=== PATIENT | female | born 1995 | race Caucasian/White ===

== ENCOUNTER 2020-08-02 16:18 | Emergency (ER) | payer BC ==
[2020-08-02 16:23] VITALS: BP 124/87; PULSE 86; RESP 20; TEMP 97.2
--- NOTE | 2020-08-02 16:38 | XR ---
EXAMINATION TYPE: XR hand complete LT DATE OF EXAM: 08/02/2020 COMPARISON: NONE HISTORY: Laceration. Pain. TECHNIQUE: 3 views FINDINGS: I see no fracture nor dislocation. Joint spaces appear normal. There is no sign of a foreig n body. IMPRESSION: Negative left hand exam. No foreign body seen. No fracture.
--- NOTE | 2020-08-02 17:03 | ED ---
Wound/Laceration HPI - General Chief Complaint: Wound/Laceration Stated Complaint: fall/hand injury Time Seen by Provider: 08/02/20 16:39 Source: patient Mode of arrival: ambulatory Limitations: no limitations - History of Present Illness Initial Comments: 25-year-old female presents to the emergency department with a chief complaint of a laceration. Patient reports this occurred about one hour prior to arrival. Patient reports she had a triple fall while she was carrying a bottle of champagne which broke and lacerated the palmar aspect of her left hand and her right hip. States her tetanus is not up-to-date. He states she has full range of motion in her hands and fingers. Denies any paresthesias. Denies taking medication to alleviate the symptoms. Denies any alleviating factors. She does not believe there are foreign bodies in her hand. - Related Data Allergies Allergy/AdvReac Type Severity Reaction Status Date / Time No Known Allergies Allergy Verified 08/02/20 16:23 Review of Systems ROS Statement: Those systems with pertinent positive or pertinent negative responses have been documented in the HPI. ROS Other: All systems not noted in ROS Statement are negative. Past Medical History Past Medical History: No Reported History History of Any Multi-Drug Resistant Organisms: None Reported Past Surgical History: No Surgical Hx Reported Past Psychological History: No Psychological Hx Reported Smoking Status: Current every day smoker Past Alcohol Use History: None Reported Past Drug Use History: None Reported General Exam Limitations: no limitations General appearance: alert, in no apparent distress Head exam: Present: atraumatic, normocephalic, normal inspection Eye exam: Present: normal appearance, PERRL, EOMI Pupils: Present: normal accommodation ENT exam: Present: normal exam, normal oropharynx, mucous membranes moist, TM's normal bilaterally, normal external ear exam Neck exam: Present: normal inspection, full ROM. Absent: tenderness Respiratory exam: Present: normal lung sounds bilaterally. Absent: respiratory distress, wheezes Cardiovascular Exam: Present: regular rate, normal rhythm, normal heart sounds. Absent: systolic murmur Extremities exam: Present: tenderness (Mild tenderness of the lacerated sites), normal capillary refill, other (Palpable ulnar and radial pulses laterally. Sensation intact in bilateral hands.). Absent: normal inspection (Once the middle laceration noted on the palmar aspect of the left hand. There is also a 3 time a laceration noted on her right hip.), full ROM, pedal edema, joint swelling, calf tenderness Back exam: Present: normal inspection, full ROM. Absent: tenderness Neurological exam: Present: alert, oriented X3, normal gait Psychiatric exam: Present: normal affect, normal mood Skin exam: Present: warm, dry, intact, normal color Course Vital Signs 08/02/20 16:19 Temperature 97.2 F L Pulse Rate 86 Respiratory 20 Rate Blood Pressure 124/87 O2 Sat by Pulse 100 Oximetry Procedures - Laceration Laceration #1 Consent Obtained: verbal consent Indication: laceration Site: hand (Left-hand) Size (cm): 1 Description: linear Depth: simple, single layer Sedation/Analgesia: none Anesthetic Used: lidocaine 1% Anesthesia Technique: local infiltration Amount (mls): 2 Pre-repair: irrigated extensively, deep structures intact Type of Sutures: nylon Size of Sutures: 4-0 Number of Sutures: 1 Technique: simple, interrupted (1) Patient Tolerated Procedure: well, no complications Laceration #2 Consent Obtained: verbal consent Indication: laceration Site: other (Right hip) Size (cm): 3 Description: linear, clean Depth: simple, single layer Sedation/Analgesia: none Anesthetic Used: lidocaine 1% Anesthesia Technique: local infiltration Amount (mls): 2 Pre-repair: irrigated extensively, deep structures intact Type of Sutures: nylon Size of Sutures: 4-0 Number of Sutures: 4 Technique: simple, interrupted Patient Tolerated Procedure: well, no complications Medical Decision Making - Medical Decision Making 25-year-old male presents to the emergency department with a chief complaint of laceration. X-rays of the hand are unremarkable. Laceration sites were thoroughly irrigated and repaired with one and 4 sutures. Tetanus was updated. Return parameters discussed with patient was understanding and agreeable. Advised to return for suture removal. Case discussed with Dr. Wild. Disposition Clinical Impression: Laceration Disposition: HOME SELF-CARE Condition: Stable Instructions (If sedation given, give patient instructions): Care For Your Stitches (DC), Laceration (DC) Additional Instructions: Please return to the emergency room in 8-10 days to have sutures removed. Please watch for any signs of infection which may include increased pain, s welling, redness, fever or chills. Please return to emergency room for any signs of infection do occur. Please use clean soap and water over the area to prevent scabbing over your stitches. Please leave wound covered for the first 24-48 hours and then leave wound open to air. Please return to the emergency room for any other concerns. Is patient prescribed a controlled substance at d/c from ED?: No Referrals: Kee Luis DO [Primary Care Provider] - 1-2 days Time of Disposition: 18:17
[2020-08-02] MEDS ORDERED: DIPH,PERTUS(ACELL)TETVAC-LF 0.5 ML VIAL IM ONE (17:18)
[2020-08-02] MEDS ORDERED: LIDOCAINE 1% INJ 10MG/ML (20 ML MDV) SQ ONE (17:18)
== END 2020-08-02 18:27 | disposition home or self-care (01) ==
LOC: EC 16:18
DX: S61.412A Laceration without foreign body of left hand, initial encounter (principal); S71.011A Laceration without foreign body, right hip, initial encounter; Z23 Encounter for immunization; F17.200 Nicotine dependence, unspecified, uncomplicated; W25.XXXA Contact with sharp glass, initial encounter
CPT/HCPCS: 73130; 90715; 99283; 12002; 90471; J2001